=== PATIENT | female | born 1990 | race Caucasian/White ===

== ENCOUNTER 2022-04-04 19:36 | Emergency (ER) | payer SELFPAY ==
[~2022-04-04] VITALS: Ht 157.5 cm; Wt 61.0 kg
[2022-04-04 21:21] LABS: CLARITY URINE CLEAR (CLEAR); COLOR URINE YELLOW (YELLOW); KETONES URINE 1+ (NEGATIVE); LEUKOCYTE ESTERASE URINE 1+ (NEGATIVE); NITRITE URINE NEGATIVE (NEGATIVE); OCCULT BLOOD URINE NEGATIVE (NEGATIVE); PH URINE 8.5 (4.5-8.0); PROTEIN URINE NEGATIVE (NEGATIVE); SPECIFIC GRAVITY URINE 1.012 (1.005-1.030)
[2022-04-04] MEDS ORDERED: KETOROLAC 60MG/2ML VIAL IM ONE (21:30)
[2022-04-05] MEDS ORDERED: IBUP-2029 MT (00:13)
[2022-04-05] MEDS ORDERED: CYCL10TA21 MT (00:13)
[2022-04-05] MEDS ORDERED: CEPH500C2 MT (00:13)
[2022-04-05] MEDS ORDERED: LIDO1ADH23 TP (02:07)
[2022-04-05] MEDS ORDERED: TOPUD PO (02:07)
[2022-04-05 02:26] VITALS: BP 114/78
== END 2022-04-05 02:28 | disposition home or self-care (01) ==
LOC: ER 19:36
DX: M51.26 Other intervertebral disc displacement, lumbar region (principal)
CPT/HCPCS: 72131; 81003; 81025; 96372; 99284; J1885

== ENCOUNTER 2022-04-14 14:34 | Emergency (ER) | payer MEDICAID ==
[~2022-04-14] VITALS: Ht 160 cm; Wt 58.0 kg
[~2022-04-14 14:34] MED LIST: CEPH500C2 MT; CYCL10TA21 MT; IBUP-2029 MT; LIDO1ADH23 TP; TOPUD PO
[2022-04-14 15:03] VITALS: BP 135/87
== END 2022-04-14 16:31 | disposition home or self-care (01) ==
LOC: ER 14:34
DX: M51.26 Other intervertebral disc displacement, lumbar region (principal); M48.061 Spinal stenosis, lumbar region without neurogenic claudication
CPT/HCPCS: 99281